=== PATIENT | male | born 1965 | race African-American/Black ===

== ENCOUNTER 2021-05-07 20:28 | Emergency (ER) | payer MEDICAID, SELFPAY ==
[2021-05-07 20:29] VITALS: BP 181/104; PULSE 111; RESP 18; TEMP 36.4; O2SAT 100; BMI 33.6
--- NOTE | 2021-05-07 20:55 | RAD_ITS ---
INDICATION: back pain EXAMINATION/TECHNIQUE: X-RAY - XR Spine Thoracic 3 Views COMPARISON: Chest x-ray from the same evening. FINDINGS: VERTEBRAE: Preserved vertebral body height. No fracture. No spondylolisthesis. Preservation of the normal thoracic kyphosis. No significant facet arthropathy. DISCS: Multilevel degenerative endplate changes seen at the cervicothoracic junction, mid and distal thoracic spine and visualized portions of the proximal lumbar spine with flowing anterior osteophyte formation as can be seen with diffuse idiopathic skeletal hyperostosis. INCLUDED CHEST/ABDOMEN: No acute abnormalities. RAD/Thoracic Spine 3 Views IMPRESSION: No fracture or malalignment. No focal osseous lesion. Multilevel degenerative endplate osteophytosis with multilevel bridging osteophytes as can be seen with diffuse idiopathic skeletal hyperostosis. Electronically Signed: Dixon Collins DO at 21:24 EDT ,
--- NOTE | 2021-05-07 20:56 | ED.VIS.BACK ---
HPI History of Present Illness Chief Complaint: Back Detail of Chief Complaint: Back pain that started 1 week ago Informant: patient Onset/Context/Timing Timing: Continuous Narrative Narrative: Patient presents to the emergency department complaint of back pain that started about a week ago. Patient describes pain in the upper left back. He can pinpoint the area of pain. Pain is severe with cough and certain movements. He denies any trauma. Patient complains of some numbness to his left index finger distal portion. He is not had pain like this before. Patient has history of peripheral artery disease as well as chronic kidney disease. Patient not on anticoagulation. Prior similar symptoms: No PFSH [facility] Medical History (Updated 05/07/21 @ 21:[address] Susanna Teague, ) Coronary artery disease High blood pressure Kidney disease PAD (peripheral artery disease) Stroke Home Medications cyclobenzaprine 10 mg PO TID PRN #20 tablet 05/07/21 [Rx Last Taken Unknown] hydrocodone-acetaminophen 1 tab PO Q4H PRN PRN 2 Days #10 tablet 05/07/21 [Rx Last Taken Unknown] naproxen 500 mg PO BID #14 tab 05/07/21 [Rx Last Taken Unknown] Allergy/AdvReac Type Severity Reaction Status Date / Time Penicillins Allergy Hives Verified 05/07/21 20:30 Social History Smoking Status: Current every day smoker tobacco type: cigarettes ROS ROS ED Constitutional Constitutional ED: Reports systems reviewed and no addt'l complaints, except as documented; Denies body ache(s), change in weight or chills Eyes Eyes: Denies acute decrease in peripheral vision, change in vision, double vision or loss of vision ENT ENT ED: Reports none; Denies ear pain, lip swelling, loss taste/smell, neck pain, otalgia or sore throat Cardiovascular Cardiovascular: Reports none; Denies abdominal pain, chest pain with activity, leg edema, lightheadedness, palpitations, rapid heart rate or syncope Respiratory/Chest Respiratory/Chest: Reports none; Denies change in mental status, dry cough, dyspnea, hemoptysis, shortness of breath at rest or shortness of breath with exertion Gastrointestinal Gastrointestinal: Reports none; Denies abdominal pain, change in stool character, diarrhea, hematemesis, hematochezia, melena, rectal bleeding or vomiting Genitourinary Genitourinary ED: Reports none; Denies abdominal discomfort, anuria, dysuria, genital pain or polyuria Musculoskeletal Musculoskeletal: Reports none and back pain; Denies arthralgias, difficulty walking, extremity pain, muscle weakness or myalgias Integumentary Reports none; Denies abscess or rash Neurologic Neurologic: Reports none; Denies abnormal gait, confusion, focal weakness, frequent falls, headache(s), loss of vision, numbness, paresthesias, radicular pain, vertigo or weakness Psychiatric Psychiatric: Reports systems reviewed and no addt'l complaints, except as documented and none; Denies behavioral changes, confusion, difficulty concentrating, hallucinations, suicidal ideation, tactile hallucinations or visual hallucinations Endocrine Endocrinology: Denies none, cold intolerance, excessive sweating, fatigue or heat intolerance Hematologic/Lymphatic Hematologic/Lymphatic: Reports none; Denies anemia, easy bleeding or easy bruising Allergic/Immunologic Allergic/Immunologic ED: Denies as per HPI, none, lip swelling, mouth swelling, throat swelling, tongue swelling or hives EXAM Physical Exam Const Vital Signs: 05/07/21 20:29 Temperature 97.6 F L Temperature Source Temporal Pulse Rate 111 H Respiratory Rate 18 Blood Pressure 181/104 H Blood Pressure Mean 129 Pulse Ox 100 Oxygen Delivery Method Room Air Positive well nourished and well developed General Appearance ED: well developed and NAD HEENT Reports TM's clear and moist mucous membranes normocephalic and atraumatic; Negative for trauma or tenderness Tympanic Membrane ED: Yes TM's clear Eyes PERRL and EOMs intact bilaterally General Eye ED: Negative for pale conjunctiva or scleral icterus Neck no lymphadenopathy, supple and no JVD General: Negative for tenderness Chest Wall inspection of chest normal and palpation of chest normal Chest: Negative for tenderness Resp normal respiratory effort and clear to auscultation bilaterally Effort and Inspection: Negative for respiratory distress or pain with movement Auscultation: Negative for rhonchi, wheezes or diminished lung sounds Cardio regular rate, regular rhythm, S1 normal heart sound, S2 normal heart sound and no murmurs Peripheral Pulses: pulses 2+ throughout GI normal to inspection, nondistended, normoactive bowel sounds, soft to palpation, non-tender, non-distended and no masses Back/Spine no CVA tenderness Back/Spine Narrative: Evaluation of the back reveals point tenderness just lateral to T3 on the left. Some diffuse tenderness over the upper thoracic spine. Deep tendon reflexes are plus 2 out of 4 bilaterally at the bicep, tricep, brachioradialis. 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 Extremity normal to inspection General Extremety ED: Negative for edema General Extremity: Negative for edema Neuro oriented x3, CN's II-XII intact bilaterally, no sensory deficits noted and gait normal Sensorium / Orientation: awake, alert, oriented to person, oriented to place and oriented to time Motor Exam: strength 5/5 throughout and strength abnormal Psych mental status grossly normal Skin no rashes or lesions noted and no wounds MDM MDM MDM Narrative Medical decision making narrative: Patient given a milligram of Dilaudid IM as well as Norflex 60 mg IM. At this point he will be referred to orthopedics for follow-up if his pain persists. There is no evidence of acute radiculopathy at this time. He does complain also of pain in his left shoulder with range of motion that again is atraumatic. Patient will be given a prescription for Naprosyn, Herrin, and Flexeril. Radiography Diagnostic Testin view chest x-ray obtained interpreted by myself as no acute disease process. Radiology in agreement. Patient had 3 view x-rays of the thoracic spine interpreted by myself as no acute fractures. Patient was noted to have degenerative changes with osteophyte formation diffusely. Radiology again in agreement Discharge Plan Triage Chief Complaint: Back ED Provider: Susanna Teague Dx/Rx/DC Orders Clinical Impression: Back pain, Acute pain of left shoulder Instructions: ED Back Pain (Acute or Chronic), ED Shoulder Pain, Uncertain Cause Prescriptions: New cyclobenzaprine [cyclobenzaprine] 10 MG tablet 10 mg PO TID PRN (Reason: Muscle Spasm) Qty: 20 RF: 0 hydrocodone-acetaminophen [hydrocodone-acetaminophen] 1 TABLET tablet 1 tab PO Q4H PRN PRN (Reason: Pain) 2 Days Qty: 10 RF: 0 naproxen 500 MG tablet 500 mg PO BID Qty: 14 RF: 0 Primary Care Provider: Care Physician,No Primary Referrals: Dewayne Altman DO [STAFF PHYSICIAN] - 3-5 Days Care Physician,No Primary [Primary Care Provider] - Disposition Disposition: Home, Self Care
--- NOTE | 2021-05-07 21:06 | RAD_ITS ---
INDICATION: cough EXAMINATION/TECHNIQUE: X-RAY - XR Chest 1 View COMPARISON: None. FINDINGS: LINES/DEVICES: None. LUNGS: Symmetric normal lung volumes. No airspace opacity or abnormal interstitial pattern. No nodule or mass. No pleural effusion or pneumothorax. MEDIASTINUM AND CARDIOVASCULAR STRUCTURES: Normal size and contour of the cardiomediastinal silhouette. No evidence of pulmonary vascular congestion. BONES AND SOFT TISSUES: Degenerative endplate changes thoracolumbar spine. RAD/Chest 1 View IMPRESSION: 1. No radiographic evidence of acute cardiopulmonary disease. Electronically Signed: Dixon Collins DO at 21:21 EDT ,
[2021-05-07] MEDS: HYDROmorphone 1 MG/ML Syringe IM (21:39)
[2021-05-07] MEDS: Orphenadrine 60 MG/2 ML Ampul IM (21:40)
== END 2021-05-07 21:49 | disposition home or self-care (01) ==
PROVIDERS: Emergency Provider Emergency Medicine; Visit Provider Emergency Medicine
DX: M25.512 Pain in left shoulder (principal); I73.9 Peripheral vascular disease, unspecified; M54.9 Dorsalgia, unspecified; F17.210 Nicotine dependence, cigarettes, uncomplicated; I25.10 Atherosclerotic heart disease of native coronary artery without angina pectoris; Z86.73 Personal history of transient ischemic attack (TIA), and cerebral infarction without residual deficits; N18.9 Chronic kidney disease, unspecified; I12.9 Hypertensive chronic kidney disease with stage 1 through stage 4 chronic kidney disease, or unspecified chronic kidney disease
CPT/HCPCS: 71045; 72072; 96372; 99282